=== PATIENT | female | born 1985 | race African-American/Black ===

== ENCOUNTER 2019-06-21 10:26 | Emergency (ER) | payer MEDICAID ==
[~2019-06-21] VITALS: Ht 162.6 cm; Wt 99.8 kg
[~2019-06-21 10:26] MED LIST: NORCO 5-325 TA1 EACH PO; PRENATAL TABLE1 EAC3 PO
[2019-06-21 11:27] LABS: ABSOLUTE NEUTROPHILS 4.3 thou/uL (1.4-8.2); EOSINOPHILS 1.6 % (0.0-3.0); HEMATOCRIT 40.5 % (37.0-47.0); HEMOGLOBIN 13.6 gm/dL (12.0-15.0); LYMPHOCYTES 27.4 % (24.0-44.0); MCH 29.8 pg (26.0-34.0); MCHC 33.5 g/dL (28.0-37.0); MONOCYTES 7.9 % (1.0-8.0); PLATELET COUNT 289 thou/uL (150-400); POLYS 62.1 % (36.0-66.0); RBC 4.55 mil/uL (4.20-5.00); RDW 13.7 % (10.5-14.5); WBC 6.9 thou/uL (4.0-11.0)
[2019-06-21 11:30] LABS: CALCIUM 8.8 mg/dL (8.5-10.1); CREATININE 0.7 mg/dL (0.6-1.0); POTASSIUM 3.9 mmol/L (3.5-5.1)
[2019-06-21 11:36] LABS: ALBUMIN 3.7 g/dL (3.4-5.0); TOTAL BILIRUBIN 0.4 mg/dL (<0.1-1.0); TOTAL PROTEIN 7.6 g/dL (6.4-8.2)
[2019-06-21 12:20] VITALS: BP 106/65
[2019-06-21] MEDS ORDERED: BUTALB-APAP-CA1 EACH PO (12:56)
== END 2019-06-21 13:30 | disposition home or self-care (01) ==
LOC: ER 10:26
PROVIDERS: Physician Assistant
DX: R51 Headache (principal); F17.210 Nicotine dependence, cigarettes, uncomplicated; Z88.0 Allergy status to penicillin

== ENCOUNTER 2019-08-28 15:00 | Emergency (ER) | payer MEDICAID ==
[~2019-08-28] VITALS: Ht 175.3 cm; Wt 93.0 kg
[~2019-08-28 15:00] MED LIST changes: +BUTALB-APAP-CA1 EACH PO
[2019-08-28] MEDS ORDERED: IBUPROFEN 600600 M1 PO (16:09)
[2019-08-28] MEDS ORDERED: AZITHROMYCIN 2250 MG PO (16:09)
[2019-08-28 16:34] VITALS: BP 125/71
== END 2019-08-28 16:34 | disposition home or self-care (01) ==
LOC: ER 15:00
DX: J02.0 Streptococcal pharyngitis (principal); Z88.1 Allergy status to other antibiotic agents; Z88.0 Allergy status to penicillin; F17.210 Nicotine dependence, cigarettes, uncomplicated

== ENCOUNTER 2020-01-12 12:16 | Emergency (ER) | payer OTHER ==
[~2020-01-12] VITALS: Ht 162.6 cm; Wt 99.8 kg
[~2020-01-12 12:16] MED LIST changes: +AZITHROMYCIN 2250 MG PO; +IBUPROFEN 600600 M1 PO
[2020-01-12 13:51] VITALS: BP 119/79
== END 2020-01-12 13:48 | disposition home or self-care (01) ==
LOC: ER 12:16
DX: N92.0 Excessive and frequent menstruation with regular cycle (principal); N93.9 Abnormal uterine and vaginal bleeding, unspecified; F17.210 Nicotine dependence, cigarettes, uncomplicated; Z32.02 Encounter for pregnancy test, result negative; Z98.51 Tubal ligation status; Z98.890 Other specified postprocedural states; Z79.2 Long term (current) use of antibiotics; Z79.899 Other long term (current) drug therapy; Z88.1 Allergy status to other antibiotic agents; Z88.0 Allergy status to penicillin